=== PATIENT | male | born 1975 | race African-American/Black ===

== ENCOUNTER 2017-02-07 01:30 | Emergency (ER) | payer OTHER ==
[~2017-02-07] VITALS: Ht 152.4 cm; Wt 80.0 kg
[2017-02-07 02:15] VITALS: BP 123/76
[2017-02-07] MEDS ORDERED: KETOROLAC 30 MG/ML VIAL (J1885) IV ONE (03:00)
[2017-02-07 03:21] LABS: BASO % 0.5 % (0.0-1.0); EOS # 0.1 10^3/uL (0.0-0.50); EOS % 0.8 % (0.0-3.0); IMMATURE GRANULOCYTE % 0.2 % (0-0); LYMPH # 2.3 10^3/uL (1.5-4.5); LYMPH % 37.3 % (24.0-44.0); MEAN CORPUSCULAR HEMOGLOBIN 27.5 pg (27.0-33.0); MEAN CORPUSCULAR HGB CONC 32.8 g/dl (32.0-36.5); MEAN CORPUSCULAR VOLUME 83.8 fl (80.0-96.0); MONO # 0.5 10^3/uL (0.0-0.8); MONO % 7.6 % (0.0-5.0); NEUTROPHILS # 3.3 10^3/uL (1.8-7.7); NEUTROPHILS % 53.6 % (36.0-66.0); PLATELET COUNT, AUTOMATED 164 10^3/uL (150-450); WHITE BLOOD COUNT 6.2 10^3/uL (4.0-10.0)
[2017-02-07 03:44] LABS: ANION GAP 6 MEQ/L (8-16); BLOOD UREA NITROGEN 17 MG/DL (7-18); CALCIUM LEVEL 8.9 MG/DL (8.5-10.1); CARBON DIOXIDE LEVEL 26 MEQ/L (21-32); CHLORIDE LEVEL 108 MEQ/L (98-107); CREATININE FOR GFR 1.28 MG/DL (0.70-1.30); GLOMERULAR FILTRATION RATE > 60.0 (>60); GLUCOSE, FASTING 93 MG/DL (70-105); POTASSIUM SERUM 4.2 MEQ/L (3.5-5.1); SODIUM LEVEL 140 MEQ/L (136-145)
[2017-02-07] MEDS ORDERED: ISOVUE-370 76% 100ML VIAL (Q9967) As Ordered ONE (03:46)
--- NOTE | 2017-02-07 05:10 | REPUSA ---
CLINICAL HISTORY: Pain, exclude PE. TECHNIQUE: Multiple incremental axial, coronal and oblique images are obtained from the thoracic inle t to the upper abdomen. Intravenous contrast material was administered as per pulmonary embolism prot ocol. COMMENTS: There is excellent opacification of pulmonary arterial system without evidence for pulmonary embolism . Aorta is of normal caliber without evidence for dissection or aneurysm. There is no evidence of pleural or parenchymal mass. There are no pleural effusions. There is no evid ence of hilar or mediastinal lymphadenopathy. The heart and great vessels are within normal limits. Images of the upper abdomen demonstrate no evidence of adrenal mass. The bony structures are free of lytic or blastic lesions. IMPRESSION: No evidence for pulmonary embolism. Thank you for your kind referral of this patient.
--- NOTE | 2017-02-07 06:04 | ECGEPIP ---
Stationary ECG Study [facility] - ED Test Date: 2017-02-07 Pat Name: JUAN MORSE Department: Room: - Gender: M Home Stager: luis miguel : 1975 Requested By: MADI ZHU Order Number: [id number] Reading MD: Garcia Samuels Measurements Intervals [place] Rate: 56 P: 48 OR: 132 QRS: 34 QRSD: 94 T: 18 QT: 382 QTc: 371 Interpretive Statements SINUS BRADYCARDIA NSTTW ABNORMALITIES NO PRIORS Electronically Signed On 02-07-2017 6:04:06 EDT by Garcia Samuels
[2017-02-07] MEDS ORDERED: KETO10TAB PO (06:06)
[2017-02-07] MEDS ORDERED: PRED20TA PO (06:09)
== END 2017-02-07 06:19 | disposition home or self-care (01) ==
LOC: M ED 01:30
DX: R07.81 Pleurodynia (principal); G43.909 Migraine, unspecified, not intractable, without status migrainosus; G89.29 Other chronic pain
CPT/HCPCS: 71275; 80048; 85025; 93005; 96374; 99284; J1885; Q9967

== ENCOUNTER → 2017-11-03 | Outpatient (REF) | LOC: M SMT 14:12 | DX: Z00.00 Encounter for general adult medical examination without abnormal findings (principal) ==